=== PATIENT | female | born 1990 | race Two or more races ===

== ENCOUNTER 2020-05-06 01:31 | Inpatient (IN) | payer OTHER ==
[~2020-05-06] VITALS: Ht 152.4 cm; Wt 76.7 kg
[~2020-05-06 01:31] MED LIST: ZOFRAN2 MG/M1
[2020-05-06] MEDS ORDERED: PRENATAL TABLE1 EAC3 PO (01:48)
[2020-05-06] MEDS ORDERED: MULTIGEN FOLIC1 EACH PO (01:49)
== END 2020-05-08 13:05 | disposition home or self-care (01) | DRG 807 ==
LOC: OB/GYN 01:31 → LDR 01:31 → OB/GYN 13:06
PROVIDERS: ADMIT Specialist; ATTEND Specialist
PROC: 10E0XZZ Delivery of Products of Conception, External Approach (ICD-10-PCS; principal; 2020-05-06)
PROC: 4A1HXFZ Monitoring of Products of Conception, Cardiac Rhythm, External Approach (ICD-10-PCS; 2020-05-06)
PROC: 3E033VJ Introduction of Other Hormone into Peripheral Vein, Percutaneous Approach (ICD-10-PCS; 2020-05-06)
PROC: 0HQ9XZZ Repair Perineum Skin, External Approach (ICD-10-PCS; 2020-05-06)
DX: O99.824 Streptococcus B carrier state complicating childbirth (principal); Z37.0 Single live birth; Z3A.38 38 weeks gestation of pregnancy; O70.0 First degree perineal laceration during delivery; Z20.828 Contact with and (suspected) exposure to other viral communicable diseases